=== PATIENT | female | born 1990 | race Caucasian/White ===

== ENCOUNTER 2017-09-22 22:13 | Emergency (ER) | payer MEDICAID ==
[~2017-09-22 22:13] MED LIST: ACE3 PO; ALBU8.5H12 IH; AZIT-1 PO; CEFU500T50 PO; CELEXA; CEPH-13 PO; CEPH250C37 PO; CEPH500C24 PO; DIA5 PO; DIPH-618 PO; DIPH-740 PO; DOCU-416 PO; EPIN0.3P15 IM; HYDR-4309 PO; HYDR1CAP15 PO; IBU600 PO; LEVO1TAB31 PO; LOR5/325 PO; LORA-1455 PO; METH-543 PO; METH4TAB57 PO; METR-1 PO; MULT-1097 PO; NITR-105 PO; NO RTN MEDS; ONDA4TAB PO; ONDA4TAB97 PO; OXYC-865 PO; PRED20TA6 PO; PROM-110 PO; SERT-181 PO; SERT20OR6 PO; TRAZ-163 PO; TRAZ150T8 PO
--- NOTE | 2017-09-22 22:22 | ER Report ---
History and Physical Time Seen By MD: 22:21 HPI/ROS CHIEF COMPLAINT: Left wrist and thumb injury HISTORY OF PRESENT ILLNESS: 27-year-old female tripped over her cat and fell landing on her outstretched left wrist. She notes 6/10 throbbing pain aggravated by movement and palpation. She notes some bruising at the base of her thumb adjacent to the wrist. Patient denies any other injuries. Allergies: Coded Allergies: latex (Verified Allergy, Intermediate, ITCHY, 08/03/17) Sulfa (Sulfonamide Antibiotics) (Verified Allergy, Mild, NAUSEA, AND TIGHT CHEST, 08/03/17) banana (Verified Allergy, Unknown, 08/03/17) chocolate flavor (Verified Allergy, Unknown, 08/03/17) coffee (Coffea arabica) (Verified Allergy, Unknown, 08/03/17) morphine (Verified Allergy, Unknown, 08/03/17) oxycodone (Verified Adverse Reaction, Mild, Vomiting , 08/03/17) Uncoded Allergies: spiders (Allergy, Severe, tachycardia/chest tightness/low blood pressure, ) Home Meds Active Scripts Epinephrine (EPIPEN 2-JES) 0.3 Mg/0.3 Ml Pen.injctr, 0.3 MG IM ONCE for allergic reaction, #1 PACK 0 Refills Prov:PAGE RIBEIRO MD 08/10/16 Reported Medications Trazodone Hcl (TRAZODONE HCL) 100 Mg Tablet, 100 MG PO QHS, TAB 08/03/17 Sertraline Hcl (SERTRALINE HCL) 100 Mg Tablet, 1 TAB PO QDAY, TAB 08/03/17 Multivitamin (ONE DAILY) 1 Each Tablet, 1 EACH PO DAILY 06/26/15 Discontinued Reported Medications Diphenhydramine Hcl (DIPHENHYDRAMINE HCL) 25 Mg Tablet, 25 MG PO Q6-8H Y for ALLERGY SYMPTOMS, TAB 01/30/17 Reviewed Nurses Notes: Yes Old Medical Records Reviewed: Yes Hx Smoking: Yes (09/14PPD ) Smoking Status: Current: Some Days Smoker Exposure to Second Hand Smoke?: Yes (1/2 pack a day) Hx Substance Use Disorder: No Hx Alcohol Use: No Constitutional Vital Sign - Last 24 Hours 09/22/17 09/22/17 22:24 22:51 Temp 98.4 Pulse 91 81 Resp 18 18 B/P (MAP) 140/86 123/82 (96) Pulse Ox 96 96 O2 Delivery Room Air Room Air Physical Exam General appearance: Alert no distress. Respiratory: Chest is non tender, lungs are clear to auscultation. Cardiac: Regular rate and rhythm Extremities: Examination of the left upper extremity reveals a neurovascularly intact hand. There is bruising and soft tissue swelling along the wrist below the thenar eminence. The wrist has decreased range of motion secondary to pain. DIFFERENTIAL DIAGNOSIS: After history and physical exam differential diagnosis was considered for sprain, strain, fracture, dislocation, contusion Medical Decision Making EKG/Imaging Imaging X-ray: Left wrist, 3 views was obtained. I viewed the images myself on the PACS system. My interpretation of the images is: No fracture no dislocation or malalignment. The radiologist interpretation had no clinically significant variation from this interpretation. ED Course/Re-evaluation ED Course Patient was admitted to an examination room. H&P was done. The differential diagnosis was considered. On clinical examination. Patient has some ecchymosis over her hyperthenar eminence adjacent to the wrist. There is decreased range of motion consistent with wrist sprain. There is no obvious deformity. Diagnostic x-rays are negative for obvious fracture or malalignment. Conservative treatment plan is formulated for the patient. She is advised ibuprofen for pain. I do not think a splint will be of much utility. Patient advised to follow-up with primary care if unimproved in 3-5 days. Decision to Disposition Date: Sep 22, 2017 Decision to Disposition Time: 22:45 Depart Departure Latest Vital Signs Vital Signs Date Time Temp Pulse Resp B/P (MAP) Pulse Ox O2 Delivery O2 Flow Rate FiO2 09/22/17 22:51 81 18 123/82 (96) 96 Room Air 09/22/17 22:24 98.4 Impression: Primary Impression: Left wrist sprain Condition: Improved Disposition: HOME OR SELF-CARE Patient Instructions: Wrist Sprain (ED) Additional Instructions: Take ibuprofen 200 mg 3 tablets 3 times a day with food for 3-5 days Apply ice packs to the affected area 3 times a day for 2 days Follow-up with your primary care if unimproved in 3-5 days Problem Qualifiers Primary Impression: Left wrist sprain Encounter type: initial encounter Qualified Codes: S63.502A - Unspecified sprain of left wrist, initial encounter CHLOE COREAS DO Sep 22, 2017 22:22
[2017-09-22 22:51] VITALS: BP 123/82
--- NOTE | 2017-09-22 22:51 | RADIOLOGY IMAGING REPORT ---
FACILITY: [facility] PATIENT NAME: Sharri Lema : 1990 MR: [id number] V: [id number] EXAM DATE: ORDERING PHYSICIAN: CHLOE COREAS TECHNOLOGIST: Location: [facility] Patient: Sharri Lema : 1990 Visit/Account:[id number] Date of Sevice: 09/22/2017 EXAMINATION: Left wrist series, 3 views 09/22/2017 10:25 PM HISTORY: Fall. Lateral pain in left wrist. COMPARISON: None FINDINGS: Visualized bony structures are intact and anatomically aligned without fracture or other a cute osseous abnormality evident. Small chronic ossification center or sesamoid dorsally over the car pometacarpal articulation on the lateral. IMPRESSION: No acute bony injury. Report Dictated By: Ed Arboleda MD at 09/22/2017 10:46 PM Report E-Signed By: Ed Arboleda MD at 09/22/2017 10:48 PM WSN:[id number]
== END 2017-09-22 22:49 | disposition home or self-care (01) ==
LOC: ER 22:26
DX: S63.502A Unspecified sprain of left wrist, initial encounter (principal)
CPT/HCPCS: 99283

== ENCOUNTER 2018-02-11 19:22 | Emergency (ER) | payer MEDICAID ==
[~2018-02-11 19:22] MED LIST changes: +SERT-173 PO; -SERT20OR6 PO
--- NOTE | 2018-02-11 19:27 | ER Report ---
History and Physical Time Seen By MD: 19:27 Allergies: Coded Allergies: latex (Verified Allergy, Intermediate, ITCHY, 02/11/18) Sulfa (Sulfonamide Antibiotics) (Verified Allergy, Mild, NAUSEA, AND TIGHT CHEST, 02/11/18) banana (Verified Allergy, Unknown, 02/11/18) chocolate flavor (Verified Allergy, Unknown, 02/11/18) coffee (Coffea arabica) (Verified Allergy, Unknown, 02/11/18) morphine (Verified Allergy, Unknown, 02/11/18) oxycodone (Verified Adverse Reaction, Mild, Vomiting , 02/11/18) Uncoded Allergies: spiders (Allergy, Severe, tachycardia/chest tightness/low blood pressure, ) Home Meds Reported Medications Trazodone Hcl (TRAZODONE HCL) 100 Mg Tablet, 100 MG PO QHS, TAB 08/03/17 Sertraline Hcl (SERTRALINE HCL) 100 Mg Tablet, 1 TAB PO QDAY, TAB 08/03/17 Discontinued Reported Medications Multivitamin (ONE DAILY) 1 Each Tablet, 1 EACH PO DAILY 06/26/15 Discontinued Scripts Epinephrine (EPIPEN 2-JES) 0.3 Mg/0.3 Ml Pen.injctr, 0.3 MG IM ONCE for allergic reaction, #1 PACK 0 Refills Prov:PAGE RIBEIRO MD 08/10/16 Reviewed Nurses Notes: Yes Old Medical Records Reviewed: Yes Hx Smoking: Yes (4PPD ) Smoking Status: Current: Some Days Smoker Exposure to Second Hand Smoke?: Yes (1/2 pack a day) Hx Substance Use Disorder: No Hx Alcohol Use: No Constitutional Vital Sign - Last 24 Hours 02/11/18 19:27 Temp 98.7 Pulse 91 Resp 18 B/P (MAP) 120/82 Pulse Ox 95 O2 Delivery Room Air Depart Departure Latest Vital Signs Vital Signs Date Time Temp Pulse Resp B/P (MAP) Pulse Ox O2 Delivery O2 Flow Rate FiO2 02/11/18 19:27 98.7 91 18 120/82 95 Room Air CHLOE COREAS DO Feb 11, 2018 19:27
--- NOTE | 2018-02-11 20:06 | ER Report ---
History and Physical Time Seen By MD: 19:36 Hx. of Stated Complaint: WATER TROUGH DROPPED ON LEFT FOOT APPROX 150# HPI/ROS CHIEF COMPLAINT: Dropped trough on foot HISTORY OF PRESENT ILLNESS: 27-year-old female patient presents to emergency room with complaint of left foot pain. Patient states that she was cleaning out the water trough for horse and while she was doing that she did not notice that it was caught on the fence. As she is putting water into it a became disconnected from the fence and fell onto her foot. Patient since then has been having significant amounts of pain to the top side of her foot. She states she does have some numbness and tingling to her toes. Patient denies any difficulty moving her toes. She states she has been able to walk on it although she does have discomfort with that. Patient has not taken any medication for this. Allergies: Coded Allergies: latex (Verified Allergy, Intermediate, ITCHY, 02/11/18) Sulfa (Sulfonamide Antibiotics) (Verified Allergy, Mild, NAUSEA, AND TIGHT CHEST, 02/11/18) banana (Verified Allergy, Unknown, 02/11/18) chocolate flavor (Verified Allergy, Unknown, 02/11/18) coffee (Coffea arabica) (Verified Allergy, Unknown, 02/11/18) morphine (Verified Allergy, Unknown, 02/11/18) oxycodone (Verified Adverse Reaction, Mild, Vomiting , 02/11/18) Uncoded Allergies: spiders (Allergy, Severe, tachycardia/chest tightness/low blood pressure, ) Home Meds Reported Medications Trazodone Hcl (TRAZODONE HCL) 100 Mg Tablet, 100 MG PO QHS, TAB 08/03/17 Sertraline Hcl (SERTRALINE HCL) 100 Mg Tablet, 1 TAB PO QDAY, TAB 08/03/17 Discontinued Reported Medications Multivitamin (ONE DAILY) 1 Each Tablet, 1 EACH PO DAILY 06/26/15 Discontinued Scripts Epinephrine (EPIPEN 2-JES) 0.3 Mg/0.3 Ml Pen.injctr, 0.3 MG IM ONCE for allergic reaction, #1 PACK 0 Refills Prov:PAGE RIBEIRO MD 08/10/16 Past Medical/Surgical History Patient has a past medical history of tachycardia, panic attacks, hernia, kidney stones, frequent UTIs, ovarian cyst, polycystic ovarian syndrome, back pain, PTSD, depression. Patient has a surgical history of neck surgery. Patient has a family medical history of stroke, diabetes, mental disability. Reviewed Nurses Notes: Yes Hx Smoking: Yes (1/4PPD ) Smoking Status: Current: Some Days Smoker Exposure to Second Hand Smoke?: Yes (1/2 pack a day) Hx Substance Use Disorder: No Hx Alcohol Use: No Constitutional Vital Sign - Last 24 Hours 02/11/18 02/11/18 19:27 20:58 Temp 98.7 Pulse 91 80 Resp 18 16 B/P (MAP) 120/82 114/92 (99) Pulse Ox 95 90 O2 Delivery Room Air Physical Exam General appearance: Alert no distress. Respiratory: Chest is non tender, lungs are clear to auscultation. Cardiac: Regular rate and rhythm. Musculoskeletal: Patient has tenderness to the top of the left foot, there is no bruising noted, patient is able wiggle her toes without any difficulties. DIFFERENTIAL DIAGNOSIS: After history and physical exam differential diagnosis was considered for contusion, fracture, crush injury. Medical Decision Making EKG/Imaging Imaging INDICATION: Left foot injury. EXAM DATE: 02/11/2018 8:04 PM COMPARISON: None. FINDINGS: 3 views left foot. Mineralization is normal. No acute alignment abnormality or fracture. Soft tissues are unremarkable. IMPRESSION: Normal left foot. Report Dictated By: Gino Salmon MD at 02/11/2018 8:16 PM Report E-Signed By: Gino Salmon MD at 02/11/2018 8:18 PM ED Course/Re-evaluation ED Course Patient was admitted to exam room, history and physical were obtained. Differential diagnoses were considered. On examination patient has some tenderness to the top of the left foot, there is some swelling but no bruising. X-rays done of the left foot which was negative for fracture. I discussed findings with the patient. We will go ahead and discharge patient this time. She is to limit her activity by pain, she is to ice her foot to 3 times a day. She is return to emergency room if condition worsens. Patient verbalized understanding and agreement with plan. Decision to Disposition Date: Feb 11, 2018 Decision to Disposition Time: 20:39 Depart Departure Latest Vital Signs Vital Signs Date Time Temp Pulse Resp B/P (MAP) Pulse Ox O2 Delivery O2 Flow Rate FiO2 02/11/18 20:58 80 16 114/92 (99) 90 02/11/18 19:27 98.7 Room Air Impression: Primary Impression: Foot contusion Condition: Improved Disposition: HOME OR SELF-CARE Patient Instructions: Contusion in Adults (ED) Additional Instructions: Limit activity by pain. Ice the foot 2-3 times a day for 10-15 minutes. Get plenty of rest. Take Tylenol or Ibuprofen as needed for pain. Follow up with your primary care primary care provider in the next week. Return to the ER if condition worsens. Problem Qualifiers Primary Impression: Foot contusion Encounter type: initial encounter Laterality: left Qualified Codes: S90.32XA - Contusion of left foot, initial encounter LUCIE KIM Feb 11, 2018 20:06
--- NOTE | 2018-02-11 20:21 | RADIOLOGY IMAGING REPORT ---
FACILITY: [facility] [place] PATIENT NAME: Sharri Lema : 1990 MR: [id number] V: [id number] EXAM DATE: ORDERING PHYSICIAN: LUCIE KIM TECHNOLOGIST: Location: [facility] Patient: Sharri Lema : 1990 Visit/Account:[id number] Date of Sevice: 02/11/2018 INDICATION: Left foot injury. EXAM DATE: 02/11/2018 8:04 PM COMPARISON: None. FINDINGS: 3 views left foot. Mineralization is normal. No acute alignment abnormality or fracture. Soft tissues are unremarkable. IMPRESSION: Normal left foot. Report Dictated By: Gino Salmon MD at 02/11/2018 8:16 PM Report E-Signed By: Gino Salmon MD at 02/11/2018 8:18 PM WSN:[id number]
[2018-02-11 20:58] VITALS: BP 114/92
== END 2018-02-11 21:03 | disposition home or self-care (01) ==
LOC: ER 19:30
DX: S90.32XA Contusion of left foot, initial encounter (principal)
CPT/HCPCS: 99282; 99283

== ENCOUNTER 2018-03-29 07:57 | Emergency (ER) | payer MEDICAID ==
[~2018-03-29 07:57] MED LIST changes: -TRAZ-163 PO; +TRAZ100T31 PO
--- NOTE | 2018-03-29 08:00 | ER Report ---
History and Physical Time Seen By MD: 08:00 HPI/ROS CHIEF COMPLAINT: Right lower quadrant abdominal pain HISTORY OF PRESENT ILLNESS: Patient is a 27-year-old female who presents to the emergency department with complaint of right lower quadrant abdominal pain that is severe in nature. Movement seems to make the pain worse. She states that the symptoms began 3 AM yesterday. She apparently was seen by her primary care provider yesterday. She states that the provider was not concerned somewhat about abdominal pain however stated that her lungs sounded "bad". She reports that the chest x-ray was done at that time but sates that it was "negative". She was started on a course of dicloxacillin for presumed pneumonia. Patient states she's been having fevers and chills. She states that the pain has persisted which is why she presents to the emergency department at this time. She denies any dysuria. She denies any vaginal discharge. She does state that she's had a history of ovarian cysts in the past. REVIEW OF SYSTEMS: Constitutional: Fevers with chills Eyes: No discharge. ENT: No sore throat. Cardiovascular: No chest pain, no palpitations. Respiratory: No cough, no shortness of breath. Gastrointestinal: Right lower quadrant abdominal pain, nausea Genitourinary: No hematuria. Musculoskeletal: No back pain. Skin: No rashes. Neurological: No headache. Allergies: Coded Allergies: latex (Verified Allergy, Intermediate, ITCHY, 03/29/18) Sulfa (Sulfonamide Antibiotics) (Verified Allergy, Mild, NAUSEA, AND TIGHT CHEST, 03/29/18) banana (Verified Allergy, Unknown, 03/29/18) chocolate flavor (Verified Allergy, Unknown, 03/29/18) coffee (Coffea arabica) (Verified Allergy, Unknown, 03/29/18) morphine (Verified Allergy, Unknown, 03/29/18) oxycodone (Verified Adverse Reaction, Mild, Vomiting , 03/29/18) Uncoded Allergies: spiders (Allergy, Severe, tachycardia/chest tightness/low blood pressure, ) Home Meds Active Scripts Hydrocodone Bit/Acetaminophen (HYDROCODON-ACETAMINOPHEN 5-325) 1 Each Tablet, 1 EACH PO Q6H for PAIN, #15 TAB 0 Refills Prov:PAGE RIBEIRO MD 03/29/18 Cephalexin 500 Mg Tab (KEFLEX 500 MG TAB) 500 Mg Tablet, 500 MG PO Q6H, #28 TAB 0 Refills TAKE ONE TABLET BY MOUTH EVERY SIX HOURS Prov:PAGE RIBEIRO MD 03/29/18 Ondansetron Hcl (ZOFRAN) 4 Mg Tablet, 4 MG PO Q8H for Nausea, #15 TAB 0 Refills Prov:PAGE RIBEIRO MD 03/29/18 Reported Medications [implanon] No Conflict Check 03/29/18 Dicloxacillin Sodium (DICLOXACILLIN SODIUM) 250 Mg Capsule, 250 MG PO, CAPSULE 03/29/18 Trazodone Hcl (TRAZODONE HCL) 100 Mg Tablet, 100 MG PO QHS, TAB 08/03/17 Sertraline Hcl (SERTRALINE HCL) 100 Mg Tablet, 1 TAB PO QDAY, TAB 08/03/17 Discontinued Scripts Oxycodone Hcl/Acetaminophen (PERCOCET 5-325 MG TABLET) 1 Each Tablet, 1 EACH PO Q4-6H for PAIN, #15 TAB 0 Refills Prov:PAGE RIBEIRO MD 03/29/18 Past Medical/Surgical History Patient has a past medical history of tachycardia, panic attacks, hernia, kidney stones, frequent UTIs, ovarian cyst, polycystic ovarian syndrome, back pain, PTSD, depression. Patient has a surgical history of neck surgery. Hx Smoking: Yes (1/4PPD ) Smoking Status: Current: Some Days Smoker Exposure to Second Hand Smoke?: Yes (1/2 pack a day) Hx Substance Use Disorder: No Hx Alcohol Use: No Constitutional Vital Sign - Last 24 Hours 03/29/18 03/29/18 03/29/18 03/29/18 07:57 08:00 08:01 08:15 Temp 98.3 Pulse ??? 112 Resp 22 B/P (MAP) 128/76 128/76 (93) 130/86 (101) Pulse Ox 92 O2 Delivery Room Air 03/29/18 03/29/18 03/29/18 03/29/18 08:27 08:30 08:45 09:15 Pulse 110 B/P (MAP) 132/81 (98) 120/85 (97) 128/74 (92) Pulse Ox 94 03/29/18 03/29/18 09:30 09:45 B/P (MAP) 128/74 (92) 101/58 (72) Intake and Output 03/29/18 03/29/18 03/30/18 14:59 22:59 06:59 Intake Total 1000 ml Balance 1000 ml Physical Exam General/Constitutional: Patient is awake, alert, nontoxic and in no acute respiratory distress. Head: Normocephalic and atraumatic. Eyes: Conjunctival clear, Pupils are equal and reactive to light. Extraocular muscles are intact and symmetrical. Sclera are clear and anicteric. Ears:External canals are clear. Tympanic membranes are clear with normal landmarks and light reflex. Nares: No rhinorrhea or bleeding. Turbinates are pink and moist. Oropharyngeal: Mucous membranes are moist. There is no pharyngeal erythema or exudate. There are no palatal petechiae. Uvula is midline and symmetrical. Neck: Supple, no adenopathy. Cardiovascular: Heart is regular and slightly tachycardic without murmurs Pulmonary: Lungs are clear to auscultation bilaterally. There are no wheezes, rales, or rhonchi. Chest rise is symmetrical Abdomen: Right lower quadrant abdominal pain with voluntary guarding equivocal rebound tenderness. Extremities: No gross deformities, No peripheral cyanosis. Able to move all 4 extremities. Neuro: Alert and oriented X3, Skin: No rashes, skin is warm dry and well perfused. Medical Decision Making Data Points Result Diagram: 03/29/18 0806 03/29/18 0806 Laboratory Hematology Test 03/29/18 08:00 03/29/18 08:06 Urine Color Yellow Urine Clarity Slightly-cloudy Urine pH 5.0 pH (4.8-9.5) Urine Specific [place] 1.016 Urine Protein 30 mg/dL (NEGATIVE) Urine Glucose (UA) Negative mg/dL (NEGATIVE) Urine Ketones Negative mg/dL (NEGATIVE) Urine Blood Moderate (NEGATIVE) Urine Nitrite Negative (NEGATIVE) Urine Bilirubin Negative (NEGATIVE) Urine Urobilinogen Negative mg/dL (0.2-1.9) Urine Leukocyte Esterase Small (NEGATIVE) Urine RBC 63 /HPF (0-2/HPF) Urine WBC 71 /HPF (0-5/HPF) Urine Squamous Epithelial Cells Many /LPF (</=FEW) Urine Bacteria Few /HPF (NONE-FEW) Urine Mucus Few /HPF (NONE-FEW) Red Blood Count 4.79 M/uL (4.17-5.56) Mean Corpuscular Volume 87.3 fL (80.0-96.0) Mean Corpuscular Hemoglobin 30.8 pg (26.0-33.0) Mean Corpuscular Hemoglobin Concent 35.2 g/dL (32.0-36.0) Red Cell Distribution Width 13.5 % (11.5-14.5) Mean Platelet Volume 8.1 fL (7.2-11.1) Neutrophils (%) (Auto) 79.1 % (39.4-72.5) Lymphocytes (%) (Auto) 11.5 % (17.6-49.6) Monocytes (%) (Auto) 8.6 % (4.1-12.4) Eosinophils (%) (Auto) 0.3 % (0.4-6.7) Basophils (%) (Auto) 0.5 % (0.3-1.4) Nucleated RBC Relative Count (auto) 0.0 /100WBC Neutrophils # (Auto) 9.6 K/uL (2.0-7.4) Lymphocytes # (Auto) 1.4 K/uL (1.3-3.6) Monocytes # (Auto) 1.0 K/uL (0.3-1.0) Eosinophils # (Auto) 0.0 K/uL (0.0-0.5) Basophils # (Auto) 0.1 K/uL (0.0-0.1) Nucleated RBC Absolute Count (auto) 0.00 K/uL Sodium Level 138 mmol/L (137-145) Potassium Level 3.5 mmol/L (3.5-5.0) Chloride Level 105 mmol/L (98-107) Carbon Dioxide Level 22 mmol/L (22-31) Blood Urea Nitrogen 7 mg/dl (7-18) Creatinine 0.70 mg/dl (0.52-1.04) Glomerular Filtration Rate Calc > 60.0 Random Glucose 130 mg/dl (75-110) Calcium Level 8.8 mg/dl (8.4-10.2) Total Bilirubin 0.6 mg/dl (0.2-1.3) Aspartate Amino Transf (AST/SGOT) 17 U/L (0-35) Alanine Aminotransferase (ALT/SGPT) 19 U/L (0-56) Alkaline Phosphatase 61 U/L (0-126) Total Protein 6.6 g/dl (6.3-8.2) Albumin 3.9 g/dl (3.5-5.0) Lipase 43 U/L (23-300) Human Chorionic Gonadotropin, Qual Negative (NEGATIVE) Chemistry Test 03/29/18 08:00 03/29/18 08:06 Urine Color Yellow Urine Clarity Slightly-cloudy Urine pH 5.0 pH (4.8-9.5) Urine Specific [place] 1.016 Urine Protein 30 mg/dL (NEGATIVE) Urine Glucose (UA) Negative mg/dL (NEGATIVE) Urine Ketones Negative mg/dL (NEGATIVE) Urine Blood Moderate (NEGATIVE) Urine Nitrite Negative (NEGATIVE) Urine Bilirubin Negative (NEGATIVE) Urine Urobilinogen Negative mg/dL (0.2-1.9) Urine Leukocyte Esterase Small (NEGATIVE) Urine RBC 63 /HPF (0-2/HPF) Urine WBC 71 /HPF (0-5/HPF) Urine Squamous Epithelial Cells Many /LPF (</=FEW) Urine Bacteria Few /HPF (NONE-FEW) Urine Mucus Few /HPF (NONE-FEW) White Blood Count 12.1 k/uL (4.5-11.0) Red Blood Count 4.79 M/uL (4.17-5.56) Hemoglobin 14.8 g/dL (12.0-16.0) Hematocrit 41.9 % (34.0-47.0) Mean Corpuscular Volume 87.3 fL (80.0-96.0) Mean Corpuscular Hemoglobin 30.8 pg (26.0-33.0) Mean Corpuscular Hemoglobin Concent 35.2 g/dL (32.0-36.0) Red Cell Distribution Width 13.5 % (11.5-14.5) Platelet Count 195 K/uL (150-450) Mean Platelet Volume 8.1 fL (7.2-11.1) Neutrophils (%) (Auto) 79.1 % (39.4-72.5) Lymphocytes (%) (Auto) 11.5 % (17.6-49.6) Monocytes (%) (Auto) 8.6 % (4.1-12.4) Eosinophils (%) (Auto) 0.3 % (0.4-6.7) Basophils (%) (Auto) 0.5 % (0.3-1.4) Nucleated RBC Relative Count (auto) 0.0 /100WBC Neutrophils # (Auto) 9.6 K/uL (2.0-7.4) Lymphocytes # (Auto) 1.4 K/uL (1.3-3.6) Monocytes # (Auto) 1.0 K/uL (0.3-1.0) Eosinophils # (Auto) 0.0 K/uL (0.0-0.5) Basophils # (Auto) 0.1 K/uL (0.0-0.1) Nucleated RBC Absolute Count (auto) 0.00 K/uL Glomerular Filtration Rate Calc > 60.0 Calcium Level 8.8 mg/dl (8.4-10.2) Total Bilirubin 0.6 mg/dl (0.2-1.3) Aspartate Amino Transf (AST/SGOT) 17 U/L (0-35) Alanine Aminotransferase (ALT/SGPT) 19 U/L (0-56) Alkaline Phosphatase 61 U/L (0-126) Total Protein 6.6 g/dl (6.3-8.2) Albumin 3.9 g/dl (3.5-5.0) Lipase 43 U/L (23-300) Human Chorionic Gonadotropin, Qual Negative (NEGATIVE) Urinalysis Test 03/29/18 08:00 Urine Color Yellow Urine Clarity Slightly-cloudy Urine pH 5.0 pH (4.8-9.5) Urine Specific [place] 1.016 Urine Protein 30 mg/dL (NEGATIVE) Urine Glucose (UA) Negative mg/dL (NEGATIVE) Urine Ketones Negative mg/dL (NEGATIVE) Urine Blood Moderate (NEGATIVE) Urine Nitrite Negative (NEGATIVE) Urine Bilirubin Negative (NEGATIVE) Urine Urobilinogen Negative mg/dL (0.2-1.9) Urine Leukocyte Esterase Small (NEGATIVE) Urine RBC 63 /HPF (0-2/HPF) Urine WBC 71 /HPF (0-5/HPF) Urine Squamous Epithelial Cells Many /LPF (</=FEW) Urine Bacteria Few /HPF (NONE-FEW) Urine Mucus Few /HPF (NONE-FEW) EKG/Imaging Imaging FACILITY: [facility] PATIENT NAME: Sharri Lema : 1990 MR: [id number] V: [id number] EXAM DATE: ORDERING PHYSICIAN: PAGE RIBEIRO TECHNOLOGIST: Location: [facility] [place] Patient: Sharri Lema : 1990 Visit/Account:[id number] Date of Sevice: 03/29/2018 ABDOMEN/PELVIS WITH CONTRAST HISTORY: Right lower quadrant pain. TECHNIQUE: CT abdomen and pelvis with intravenous contrast. One of the following dose optimization techniques was utilized in the performance of this exam: Automated exposure control; adjustment of the mA and/ or kV according to the patient's size; or use of an iterative reconstruction technique. Specific details can be referenced in the facility's radiology CT exam operational policy. CONTRAST: 75 mL Isovue-370 IV COMPARISON: None. FINDINGS: Visualized lung bases: Negative. Hepatobiliary: Punctate calcification left hepatic lobe consistent with benign granuloma. Spleen: Negative. Adrenals: Negative. Pancreas: Negative. Kidneys/: Left kidney unremarkable. Patchy ill-defined areas of cortical hypoenhancement throughout the right kidney with mild perinephric fat stranding. No gross organized cortical fluid collection to suggest abscess at this time. Mild asymmetric urothelial thickening on the right without hydronephrosis. No urinary collecting system stone. 3.5 cm simple fluid attenuating right ovarian cyst. GI: No obstruction, wall thickening or surrounding inflammation. Appendix well- visualized and appears normal. Mild distal colonic constipation. Vessels/spaces/nodes: Trace free pelvic fluid. Bones/soft tissues: Unremarkable. IMPRESSION: 1. Asymmetric right perinephric fat stranding, patchy ill-defined foci of renal cortical hypoenhancement and urothelial thickening most consistent with urinary tract infection/pyelonephritis. 2. 3.5 cm simple fluid attenuating right ovarian cyst. Report Dictated By: Clark Henderson MD at 03/29/2018 9:17 AM Report E-Signed By: Clark Henderson MD at 03/29/2018 9:23 AM WSN:[id number] ED Course/Re-evaluation Clinical Indication for ER IV: Hydration, IV Access ED Course 03/29/2018 8:17:47 am patient with right lower quadrant abdominal pain. After history and physical exam was performed differential diagnosis was formulated which includes but is not limited to: Appendicitis, gastroenteritis, ovarian cysts, ovarian torsion, mesenteric adenitis. Plan at this time will be IV hydration along with pain relief with IV Toradol, nausea relief with IV Reglan and Benadryl. I will check CBC CMP and CT scan of the abdomen and pelvis. We'll also perform a urinalysis. We'll check test. Re-evaluation 03/29/2018 9:23:38 am pain is significantly improved with Toradol, Reglan and Benadryl. Awaiting results of CT scan. 03/29/2018 10:16:[address] consistent with acute pyelonephritis. Plan will be IV Rocephin we'll then send the patient home on oral Keflex and have her discontinue the dicloxacillin. I initially called and oxycodone however patient has an allergy for that medication we will switch prescription for hydrocodone Decision to Disposition Date: Mar 29, 2018 Decision to Disposition Time: 10:17 Depart Departure Latest Vital Signs Vital Signs Date Time Temp Pulse Resp B/P (MAP) Pulse Ox O2 Delivery O2 Flow Rate FiO2 03/29/18 09:45 101/58 (72) 03/29/18 08:27 110 94 03/29/18 08:00 98.3 22 Room Air Impression: Primary Impression: Pyelonephritis Condition: Improved New Scripts Hydrocodone Bit/Acetaminophen (HYDROCODON-ACETAMINOPHEN 5-325) 1 Each Tablet 1 EACH PO Q6H for PAIN, #15 TAB 0 Refills Prov: PAGE RIBEIRO MD 03/29/18 Cephalexin 500 Mg Tab (KEFLEX 500 MG TAB) 500 Mg Tablet 500 MG PO Q6H, #28 TAB 0 Refills TAKE ONE TABLET BY MOUTH EVERY SIX HOURS Prov: PAGE RIBEIRO MD 03/29/18 Ondansetron Hcl (ZOFRAN) 4 Mg Tablet 4 MG PO Q8H for Nausea, #15 TAB 0 Refills Prov: PAGE RIBEIRO MD 03/29/18 Patient Instructions: Urinary Tract Infection in Women (ED) Additional Instructions: Discontinue dicloxacillin, begin new course of antibiotic today and take as directed until complete. If your symptoms worsen at any time he should return to the emergency department for reevaluation. If your symptoms persist greater than [id number] hours he should be reevaluated. PAGE RIBEIRO MD Mar 29, 2018 08:00
[2018-03-29] MEDS ORDERED: [UNRECOGNIZED DRUG - CODE] PO (08:05)
[2018-03-29] MEDS ORDERED: implanon (08:10)
[2018-03-29] MEDS ORDERED: KETOROLAC 30 MG/ML VIAL IVP ONE (08:15)
[2018-03-29] MEDS ORDERED: METOCLOPRAMIDE 10 MG/2 ML SDV IVP ONE (08:15)
[2018-03-29] MEDS ORDERED: NS(*) 0.9% 1000 ML BAG 1,000 ML IV ONE (08:15)
[2018-03-29] MEDS ORDERED: diphenhydrAMINE 50 MG/ML VIAL IVP ONE (08:15)
[2018-03-29 08:23] LABS: PLATELET COUNT, AUTOMATED 195 K/uL (150-450)
[2018-03-29] MEDS ORDERED: IOPAMIDOL 76% 75 ML INFUS BTL 75 ML ONE (08:28)
--- NOTE | 2018-03-29 09:27 | RADIOLOGY IMAGING REPORT ---
[place] [facility] [place] Sharri Lema : 1990 MR: [id number] V: [id number] EXAM DATE: ORDERING PHYSICIAN: PAGE RIBEIRO TECHNOLOGIST: Location: [facility] - [place] Patient: Sharri Lema : 1990 Visit/Account:[id number] Date of Sevice: 03/29/2018 ABDOMEN/PELVIS WITH CONTRAST HISTORY: Right lower quadrant pain. TECHNIQUE: CT abdomen and pelvis with intravenous contrast. One of the following dose optimization techniques was utilized in the performance of this exam: Autom ated exposure control; adjustment of the mA and/or kV according to the patient's size; or use of an i terative reconstruction technique. Specific details can be referenced in the facility's radiology C T exam operational policy. CONTRAST: 75 mL Isovue-370 IV COMPARISON: None. FINDINGS: Visualized lung bases: Negative. Hepatobiliary: Punctate calcification left hepatic lobe consistent with benign granuloma. Spleen: Negative. Adrenals: Negative. Pancreas: Negative. Kidneys/: Left kidney unremarkable. Patchy ill-defined areas of cortical hypoenhancement throughou t the right kidney with mild perinephric fat stranding. No gross organized cortical fluid collection to suggest abscess at this time. Mild asymmetric urothelial thickening on the right without hydroneph rosis. No urinary collecting system stone. 3.5 cm simple fluid attenuating right ovarian cyst. GI: No obstruction, wall thickening or surrounding inflammation. Appendix well-visualized and appear s normal. Mild distal colonic constipation. Vessels/spaces/nodes: Trace free pelvic fluid. Bones/soft tissues: Unremarkable. IMPRESSION: 1. Asymmetric right perinephric fat stranding, patchy ill-defined foci of renal cortical hypoenhancem ent and urothelial thickening most consistent with urinary tract infection/pyelonephritis. 2. 3.5 cm simple fluid attenuating right ovarian cyst. Report Dictated By: Clark Henderson MD at 03/29/2018 9:17 AM Report E-Signed By: Clark Henderson MD at 03/29/2018 9:23 AM WSN:[id number]
[2018-03-29] MEDS ORDERED: cefTRIAXone 1 GM VIAL IVP ONE (09:35)
[2018-03-29] MEDS ORDERED: ONDA4TAB97 PO (09:38)
[2018-03-29] MEDS ORDERED: OXYC-865 PO (09:38)
[2018-03-29] MEDS ORDERED: CEPH500T7 PO (09:38)
[2018-03-29 09:45] VITALS: BP 101/58
[2018-03-29] MEDS ORDERED: HYDR-385 PO (10:15)
== END 2018-03-29 09:59 | disposition home or self-care (01) ==
LOC: ER 08:00
DX: N10 Acute pyelonephritis (principal)
CPT/HCPCS: 74177; 81001; 83690; 84703; 85025; 96361; 96374; 96375; 99284; J0696; J1200; J1885; J2765; J7030; Q9967; 82040; 82247; 82310; 82374; 82435; 82565; 82947; 84075; 84132; 84155; 84295; 84450; 84460; 84520

== ENCOUNTER 2018-05-02 19:48 | Emergency (ER) | payer MEDICAID ==
[~2018-05-02 19:48] MED LIST changes: +CEPH500T7 PO; +HYDR-385 PO; +[UNRECOGNIZED DRUG - CODE] PO; +implanon
--- NOTE | 2018-05-02 19:50 | ER Report ---
History and Physical Time Seen By MD: 19:50 HPI/ROS CHIEF COMPLAINT: Right index finger laceration HISTORY OF PRESENT ILLNESS: 27-year-old female presents ambulatory the ER with a laceration to her right index finger. She was cutting lilian stems off to place them in water. She accidentally cut her right index finger adjacent to the nail on the radial side. There is approximately 5 mm laceration starting at the margin of the nail extending around to the pad of the finger. There is a small anni in the nail. Patient states her tetanus shots up-to-date. Patient notes 2/10 dull pain in her fingertip. Bleeding controlled with pressure. Allergies: Coded Allergies: latex (Verified Allergy, Intermediate, ITCHY, 05/02/18) Sulfa (Sulfonamide Antibiotics) (Verified Allergy, Mild, NAUSEA, AND TIGHT CHEST, 05/02/18) banana (Verified Allergy, Unknown, 05/02/18) chocolate flavor (Verified Allergy, Unknown, 05/02/18) coffee (Coffea arabica) (Verified Allergy, Unknown, 05/02/18) morphine (Verified Allergy, Unknown, 05/02/18) oxycodone (Verified Adverse Reaction, Mild, Vomiting , 05/02/18) Uncoded Allergies: spiders (Allergy, Severe, tachycardia/chest tightness/low blood pressure, 10/23/16) Home Meds Reported Medications Fluticasone Prop 44 Mcg (FLOVENT HFA 44 MCG) 44 Mcg Inha, 44 MCG INH, INH 05/02/18 Epinephrine (EPIPEN 2-JES) 0.3 Mg/0.3 Ml Pen.injctr, 0.3 MG IM PRN 05/02/18 [implanon] No Conflict Check 03/29/18 Trazodone Hcl (TRAZODONE HCL) 100 Mg Tablet, 100 MG PO QHS, TAB 08/03/17 Sertraline Hcl (SERTRALINE HCL) 100 Mg Tablet, 1 TAB PO QDAY, TAB 08/03/17 Discontinued Reported Medications Dicloxacillin Sodium (DICLOXACILLIN SODIUM) 250 Mg Capsule, 250 MG PO, CAPSULE 03/29/18 Discontinued Scripts Hydrocodone Bit/Acetaminophen (HYDROCODON-ACETAMINOPHEN 5-325) 1 Each Tablet, 1 EACH PO Q6H for PAIN, #15 TAB 0 Refills Prov:PAGE RIBEIRO MD 03/29/18 Cephalexin 500 Mg Tab (KEFLEX 500 MG TAB) 500 Mg Tablet, 500 MG PO Q6H, #28 TAB 0 Refills TAKE ONE TABLET BY MOUTH EVERY SIX HOURS Prov:PAGE RIBEIRO MD 03/29/18 Ondansetron Hcl (ZOFRAN) 4 Mg Tablet, 4 MG PO Q8H for Nausea, #15 TAB 0 Refills Prov:PAGE RIBEIRO MD 03/29/18 Reviewed Nurses Notes: Yes Old Medical Records Reviewed: Yes Hx Smoking: Yes (14PPD ) Smoking Status: Current: Some Days Smoker Exposure to Second Hand Smoke?: Yes (1/2 pack a day) Hx Substance Use Disorder: No Hx Alcohol Use: No Constitutional Vital Sign - Last 24 Hours 05/02/18 05/02/18 19:51 20:27 Temp 98.2 Pulse 96 64 Resp 16 18 B/P (MAP) 125/84 125/82 (96) Pulse Ox 95 97 O2 Delivery Room Air Room Air Physical Exam General appearance: Alert no distress. Respiratory: Chest is non tender, lungs are clear to auscultation. Cardiac: Regular rate and rhythm Extremity: Examination of the right index finger. There is a 5 mm laceration on the right index finger on the radial aspect just adjacent to the nail. It is a transverse laceration. The joint and all tendons are noted to be intact. DIFFERENTIAL DIAGNOSIS: After history and physical exam differential diagnosis was considered for finger laceration, nail bed laceration, foreign body, joint penetration, tendon injury, digital nerve injury. Medical Decision Making ED Course/Re-evaluation ED Course Patient was admitted to an examination room. H&P was done. The differential diagnoses was considered. The wound was cleansed. Pressure was held to control the bleeding. Dermabond was applied as noted below. The wound care was discussed. Procedure: Laceration repair. Verbal consent was obtained from the patient. The 5 mm laceration on the right index finger was anesthetized in the usual fashion. The wound was scrubbed, draped and explored to its base with a gloved finger. The wound was repaired with Dermabond adhesive. The wound repair was simple. The procedure was performed by myself. Decision to Disposition Date: May 02, 2018 Decision to Disposition Time: 20:16 Depart Departure Latest Vital Signs Vital Signs Date Time Temp Pulse Resp B/P (MAP) Pulse Ox O2 Delivery O2 Flow Rate FiO2 05/02/18 20:27 64 18 125/82 (96) 97 Room Air 05/02/18 19:51 98.2 Impression: Primary Impression: Laceration of right index finger Condition: Improved Disposition: HOME OR SELF-CARE Patient Instructions: Skin Adhesive Care (ED) Problem Qualifiers Primary Impression: Laceration of right index finger Encounter type: initial encounter Damage to nail status: without damage Foreign body presence: without foreign body Qualified Codes: S61.210A - Laceration without foreign body of right index finger without damage to nail, initial encounter CHLOE COREAS DO May 02, 2018 19:50
[2018-05-02] MEDS ORDERED: OCTYL CYANOACRYLATE 1 APP APPL TP ONE (19:55)
[2018-05-02] MEDS ORDERED: FLU44R INH (19:57)
[2018-05-02] MEDS ORDERED: EPIN0.3P15 IM (19:57)
[2018-05-02 20:27] VITALS: BP 125/82
== END 2018-05-02 20:29 | disposition home or self-care (01) ==
LOC: ER 20:06
DX: S61.210A Laceration without foreign body of right index finger without damage to nail, initial encounter (principal)
CPT/HCPCS: 99283

== ENCOUNTER → 2018-08-10 | Outpatient (CLI) | payer MEDICAID ==
[~2018-08-10] MED LIST changes: +FLU44R INH; -HYDR-4309 PO; +HYDR-653 PO
--- NOTE | 2018-08-10 19:55 | RADIOLOGY IMAGING REPORT ---
FACILITY: [facility] PATIENT NAME: Sharri Lema : 1990 MR: [id number] V: [id number] EXAM DATE: ORDERING PHYSICIAN: SERA MCGUIRE TECHNOLOGIST: Location: [facility] Patient: Sharri Lema : 1990 Visit/Account:[id number] Date of Sevice: 08/10/2018 EXAMINATION: CT abdomen and pelvis without IV contrast HISTORY: Trauma. Back stepped on by a horse. TECHNIQUE: Axial CT images of the abdomen and pelvis were obtained without IV contrast, with roldan l and sagittal 2D reconstructed images. One of the following dose optimization techniques was utilized in the performance of this exam: Autom ated exposure control; adjustment of the mA and/or kV according to the patient's size; or use of an i terative reconstruction technique. Specific details can be referenced in the facility's radiology C T exam operational policy. COMPARISON: 03/29/2018. FINDINGS: Evaluation of the solid and viscus parenchymal organs is limited without the benefit of IV contrast. Liver: Negative. Gallbladder and bile ducts: Negative. Spleen: Negative. Pancreas: Negative. Adrenal glands: Negative. Kidneys: Normal size and morphology of both kidneys. No retroperitoneal fluid or hemorrhage. Bowel and peritoneum: The small bowel and colon are normal in caliber and unremarkable by noncontras t imaging. No free fluid or free intraperitoneal air. Pelvic structures: Negative. Lymph node assessment: Negative. Vessels: Negative. Musculoskeletal: No acute osseous findings. Normal alignment along the lumbar spine. Vertebral body height and disc spaces are preserved. Posterior elements are intact, with normal alignment along the lumbar facet joints. The bony pelvis is intact. Body wall: Negative. Lung bases: Negative. IMPRESSION: 1. No acute traumatic findings in the abdomen or pelvis by noncontrast CT imaging. 2. Lumbar spine is unremarkable by CT. No evidence of acute fracture or subluxation. Report Dictated By: Rod Mcintosh MD at 08/10/2018 7:49 PM Report E-Signed By: Rod Mcintosh MD at 08/10/2018 7:53 PM WSN:[id number]
== END ==
LOC: CT 18:53
PROVIDERS: ATTEND Nurse Practitioner Family
DX: M25.552 Pain in left hip (principal); M54.5 Low back pain; R10.9 Unspecified abdominal pain; W55.12XA Struck by horse, initial encounter
CPT/HCPCS: 74176

== ENCOUNTER → 2018-08-30 | Outpatient (CLI) | payer MEDICAID ==
--- NOTE | 2018-08-30 10:24 | RADIOLOGY IMAGING REPORT ---
FACILITY: [facility] - [place] PATIENT NAME: Sharri Lema : 1990 MR: [id number] V: [id number] EXAM DATE: ORDERING PHYSICIAN: LETY KEE TECHNOLOGIST: Location: [facility] Patient: Sharri Lema : 1990 Visit/Account:[id number] Date of Sevice: 08/30/2018 ORBITS FOREIGN BODY 1 VIEW Given history: Pre-MRI Additional history: None Findings:Osseous structures normal. Paranasal sinuses well aerated. There are no radiopaque foreign body seen over the orbits. Impression: Normal study. Patient cleared for MRI. Report Dictated By: Connor Doan MD at 08/30/2018 10:18 AM Report E-Signed By: Connor Doan MD at 08/30/2018 10:19 AM WSN:[id number]
--- NOTE | 2018-08-30 11:51 | RADIOLOGY IMAGING REPORT ---
FACILITY: [facility] PATIENT NAME: Sharri Lema : 1990 MR: [id number] V: [id number] EXAM DATE: ORDERING PHYSICIAN: LETY KEE TECHNOLOGIST: Location: Patient: Sharri Lema : 1990 Visit/Account:[id number] Date of Sevice: 08/30/2018 L SPINE W/O CONTRAST COMPARISON: None Additional pertinent history: Lumbar disc disorder Technique: Multiplanar multisequence lumbar spine MRI was performed without gadolinium enhancement. FINDINGS: Vertebral body heights and alignment: Negative. Vertebral marrow signal: Negative. Distal thoracic cord and conus: Negative. The conus ends at T12-L1. Surrounding soft tissues: Negative. Inspection of the disc spaces reveal the following: L5-S1: Posterior broad-based disc protrusion with facet hypertrophic changes. Mild right-sided neura l foraminal narrowing. No significant left-sided neural foraminal narrowing. Mild right lateral rec ess stenosis with mild impingement upon the traversing right S1 nerve root. L4-L5: Minimal circumferential disc bulging with facet hypertrophic changes. No significant canal or neural foraminal narrowing. L3-L4: Negative. L2-L3: Negative. L1-L2: Negative. T12-L1: Negative. IMPRESSION: 1. Spondylitic change involving the lower lumbar spine. 2. Findings contribute to mild right lateral recess stenosis and mild right-sided neural foraminal n arrowing at L5-S1. 3. No underlying canal stenosis. Report Dictated By: Manuel Franks MD at 08/30/2018 11:45 AM Report E-Signed By: Manuel Franks MD at 08/30/2018 11:47 AM WSN:[id number]
== END ==
LOC: MRI 09:50
PROVIDERS: ATTEND Orthopaedic Surgery
DX: M51.06 Intervertebral disc disorders with myelopathy, lumbar region (principal)
CPT/HCPCS: 70030; 72148

== ENCOUNTER 2018-11-11 12:06 | Emergency (ER) | payer MEDICAID ==
[~2018-11-11 12:06] MED LIST changes: -MULT-1097 PO; +MULT-1540 PO
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
[2018-11-11] MEDS ORDERED: ONDANSETRON 4 MG/2 ML VIAL IVP ONE (13:00)
[2018-11-11] MEDS ORDERED: KETOROLAC 30 MG/ML VIAL IVP ONE (13:00)
[2018-11-11] MEDS ORDERED: DIAZEPAM 50 MG/10 ML MDV IVP ONE (13:00)
[2018-11-11 14:05] VITALS: BP 115/74
--- NOTE | 2018-11-11 14:18 | RADIOLOGY IMAGING REPORT ---
FACILITY: [facility] PATIENT NAME: Sharri Lema : 1990 MR: [id number] V: [id number] EXAM DATE: ORDERING PHYSICIAN: PAGE RIBEIRO TECHNOLOGIST: Location: [facility] Patient: Sharri Lema : 1990 Visit/Account:[id number] Date of Sevice: 11/11/2018 INDICATION: pain; left paraspinal area. DATE: 11/11/2018 2:13 PM. TECHNIQUE: XR THORACIC SPINE 3 V COMPARISON: Lumbar spine radiographs August 30, 2018. FINDINGS: Vertebral body heights are maintained. There is no conspicuous fracture, and there are no significant degenerative findings. Cervical disc prosthesis is noted. IMPRESSION: No acute osseous abnormality and no significant degenerative findings. Report Dictated By: Burak Grier MD at 11/11/2018 2:13 PM Report E-Signed By: Burak Grier MD at 11/11/2018 2:15 PM WSN:[email or web address]
[2018-11-11] MEDS ORDERED: LOR5/325 PO (14:26)
[2018-11-11] MEDS ORDERED: METH-543 PO (14:26)
== END 2018-11-11 14:47 | disposition home or self-care (01) ==
LOC: ER 12:49
DX: M62.830 Muscle spasm of back (principal)
CPT/HCPCS: 72072; 84703; 96374; 96375; 99284; J1885; J2405; J3360

== ENCOUNTER → 2019-01-07 | Outpatient (CLI) | payer MEDICAID ==
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
== END ==
LOC: CT 09:58
PROVIDERS: ATTEND Physician Assistant
DX: J32.0 Chronic maxillary sinusitis (principal); J34.2 Deviated nasal septum; J32.3 Chronic sphenoidal sinusitis
CPT/HCPCS: 70450

== ENCOUNTER 2019-03-25 02:58 | Emergency (ER) | payer MEDICAID ==
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
[2019-03-25] MEDS ORDERED: fentaNYL CITR 100 MCG/2 ML AMP IVP ONE (03:25)
[2019-03-25] MEDS ORDERED: NS(*) 0.9% 1000 ML BAG 1,000 ML IV ONE (03:25)
[2019-03-25 03:46] LABS: PLATELET COUNT, AUTOMATED 225 K/uL (150-450)
[2019-03-25 03:58] LABS: INR 0.98
[2019-03-25] MEDS ORDERED: KETOROLAC 30 MG/ML VIAL IVP ONE (04:50)
[2019-03-25] MEDS ORDERED: ORPHENADRINE 60MG/2ML INJ IVP ONE (04:50)
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
[2019-03-25 05:30] VITALS: BP 120/77
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
[2019-03-25] MEDS ORDERED: CYCL10TA29 PO (05:38)
[2019-03-25] MEDS ORDERED: LOR5/325 PO (05:38)
[2019-03-25] MEDS ORDERED: CYCLOBENZAPRINE HCL 10 MG TH PO ONE (05:40)
[2019-03-25] MEDS ORDERED: ACET/HYDROC 5/325MG TH ER ONLY 2 TAB/BOTTLE PO ONE (05:40)
== END 2019-03-25 05:50 | disposition home or self-care (01) ==
LOC: ER 03:22
DX: M62.830 Muscle spasm of back (principal); M25.551 Pain in right hip; M79.642 Pain in left hand; M54.5 Low back pain; R20.2 Paresthesia of skin
CPT/HCPCS: 70450; 71045; 72125; 72128; 72131; 73130; 73502; 81001; 84703; 85025; 85610; 85730; 96361; 96374; 96375; 99284; J1885; J2360; J3010; J7030; L0172; 82040; 82247; 82310; 82374; 82435; 82565; 82947; 84075; 84132; 84155; 84295; 84450; 84460; 84520

== ENCOUNTER 2019-04-17 15:52 | Emergency (ER) | payer MEDICAID ==
[~2019-04-17 15:52] MED LIST changes: +CYCL10TA29 PO
--- NOTE | 2019-04-17 15:53 | ER Report ---
History and Physical Time Seen By MD: 15:49 HPI/ROS CHIEF COMPLAINT: Left wrist pain HISTORY OF PRESENT ILLNESS: Patient is a 28-year-old female here with complaints of left wrist pain after reportedly being kicked in the hand by a horse causing extension of the wrist and subsequent wrist pain especially on the ventral aspect. Patient is neurovascularly intact at time of evaluation, capillary refill less than 2 seconds. Denies further injuries at this time. REVIEW OF SYSTEMS: Constitutional: No fever, no chills. Musculoskeletal: Tenderness on the ventral and dorsal aspect of the wrist Skin: No rashes. Neurological: Neurovascularly intact Allergies: Coded Allergies: latex (Verified Allergy, Intermediate, ITCHY, 04/17/19) nickel (Verified Allergy, Intermediate, WELTS, 04/17/19) Sulfa (Sulfonamide Antibiotics) (Verified Allergy, Mild, NAUSEA, AND TIGHT CHEST, 04/17/19) banana (Verified Allergy, Unknown, 04/17/19) chocolate flavor (Verified Allergy, Unknown, 04/17/19) coffee (Coffea arabica) (Verified Allergy, Unknown, 04/17/19) morphine (Verified Allergy, Unknown, 04/17/19) oxycodone (Verified Adverse Reaction, Mild, Vomiting , 04/17/19) Uncoded Allergies: spiders (Allergy, Severe, tachycardia/chest tightness/low blood pressure, 10/23/16) Home Meds Reported Medications Etonogestrel (NEXPLANON) 68 Mg Implant, 68 MG SQ DIRECTED, IMPLANT 04/17/19 Epinephrine (EPIPEN 2-JES) 0.3 Mg/0.3 Ml Pen.injctr, 0.3 MG IM PRN 05/02/18 Trazodone Hcl (TRAZODONE HCL) 100 Mg Tablet, 100 MG PO QHS, TAB 08/03/17 Sertraline Hcl (SERTRALINE HCL) 100 Mg Tablet, 1 TAB PO QDAY, TAB 08/03/17 Discontinued Reported Medications Fluticasone Prop 44 Mcg (FLOVENT HFA 44 MCG) 44 Mcg Inha, 44 MCG INH, INH 05/02/18 [implanon] No Conflict Check 03/29/18 Discontinued Scripts Hydrocodone Bit/Acetaminophen (HYDROCODON-ACETAMINOPHEN 5-325) 1 Each Tablet, 1 EACH PO Q4H PRN for PAIN, #6 TAB 0 Refills Prov:LINK,HÉCTOR W MD 03/25/19 Cyclobenzaprine Hcl (CYCLOBENZAPRINE HCL) 10 Mg Tablet, 10 MG PO Q8H PRN for MUSCLE SPASMS, #20 TAB 0 Refills Prov:HÉCTOR MAZA MD 03/25/19 Hx Smoking: Yes (1/4PPD ) Smoking Status: Current: Some Days Smoker Exposure to Second Hand Smoke?: Yes (1/2 pack a day) Hx Substance Use Disorder: No Hx Alcohol Use: No Constitutional Vital Sign - Last 24 Hours 04/17/19 15:55 Temp 97.3 Pulse 96 Resp 18 B/P (MAP) 133/79 Pulse Ox 93 O2 Delivery Room Air Physical Exam General Appearance: The patient is alert, has no immediate need for airway protection and no signs of toxicity. Uncomfortable appearing Neurological: No focal neurological deficits, intact sensorineural examination of the distal extremity Skin: Warm and dry, no rashes. Musculoskeletal: Tenderness on palpation of the dorsal and ventral aspect of the left wrist with range of motion of the wrist DIFFERENTIAL DIAGNOSIS: After history and physical exam differential diagnosis was considered for fracture, contusion, abrasion, sprain Medical Decision Making EKG/Imaging Imaging PATIENT NAME: Sharri Lema : 1990 MR: [id number] V: [id number] EXAM DATE: ORDERING PHYSICIAN: ANÍBAL OLGUIN TECHNOLOGIST: [place] [facility] [place] Sharri Lema : 1990 Visit/Account:[id number] Date of Sevice: 04/17/2019 XR WRIST 3 OR MORE VIEWS LT, HAND LIMITED LEFT COMPARISON: None. HISTORY: wrist pain , but the left wrist backwards TECHNIQUE: Two views left hand and three views left wrist FINDINGS: BONES: No significant arthropathy, acute-appearing fracture, malalignment, or significant osseous lesion. On the lateral view there is a 2 mm corticated bone fragment along the dorsal margin of what is probably the third CMC joint which has a chronic appearance. Carpal alignment within normal limits. SOFT TISSUES: No appreciable soft tissue swelling. No abnormal soft tissue calcifications. OTHER: Negative. IMPRESSION: Chronic appearing bone fragment along the dorsal margin of the third CMC joint. This is probably due to remote trauma. There is no acute fracture or malalignment in the left hand or wrist. Report Dictated By: Torey Michelle at 04/17/2019 5:03 PM Report E-Signed By: Torey Michelle at 04/17/2019 5:05 PM WSN:[id number] PATIENT NAME: Sharri Lema : 1990 MR: [id number] V: [id number] EXAM DATE: ORDERING PHYSICIAN: ANÍBAL OLGUIN TECHNOLOGIST: [place] [facility] [place]: Sharri Lema : 1990 Visit/Account:[id number] Date of Sevice: 04/17/2019 XR WRIST 3 OR MORE VIEWS LT, HAND LIMITED LEFT COMPARISON: None. HISTORY: wrist pain , but the left wrist backwards TECHNIQUE: Two views left hand and three views left wrist FINDINGS: BONES: No significant arthropathy, acute-appearing fracture, malalignment, or significant osseous lesion. On the lateral view there is a 2 mm corticated bone fragment along the dorsal margin of what is probably the third CMC joint which has a chronic appearance. Carpal alignment within normal limits. SOFT TISSUES: No appreciable soft tissue swelling. No abnormal soft tissue calcifications. OTHER: Negative. IMPRESSION: Chronic appearing bone fragment along the dorsal margin of the third CMC joint. This is probably due to remote trauma. There is no acute fracture or malalignment in the left hand or wrist. Report Dictated By: Torey Michelle at 04/17/2019 5:03 PM Report E-Signed By: Torey Michelle at 04/17/2019 5:05 PM WSN:[id number] ED Course/Re-evaluation ED Course Patient is a 28-year-old female here with complaints of left wrist pain after being kicked in the hand by a horse. Injury took place shortly prior to arrival. Patient is neurovascularly intact at time of evaluation in the distal extremity. X-ray imaging of the wrist and hand showed no acute fractures. Patient was given a preformed wrist splint for support. PCP follow-up recommended, return precautions provided. Decision to Disposition Date: Apr 17, 2019 Decision to Disposition Time: 17:13 Depart Departure Latest Vital Signs Vital Signs Date Time Temp Pulse Resp B/P (MAP) Pulse Ox O2 Delivery O2 Flow Rate FiO2 04/17/19 15:55 97.3 96 18 133/79 93 Room Air Impression: Primary Impression: Left wrist sprain Condition: Improved Disposition: HOME OR SELF-CARE Referrals: SERA TAYLOR MD (PCP) New Scripts Tramadol Hcl (TRAMADOL HCL) 50 Mg Tablet 50 MG PO Q6H PRN for PAIN, #6 TAB 0 Refills Prov: ANÍBAL OLGUIN DO 04/17/19 Patient Instructions: Wrist Sprain (ED) Additional Instructions: No acute fractures identified on x-ray imaging. Please wear her splint for comfort, he may take ibuprofen or Tylenol as needed for primary pain control, 1 tramadol every 6-8 hours as needed for breakthrough pain control. Please return promptly if you develop worsening pain, numbness. ANÍBAL OLGUIN DO Apr 17, 2019 15:53
[2019-04-17 15:55] VITALS: BP 133/79
[2019-04-17] MEDS ORDERED: ETON68IM SQ (16:00)
[2019-04-17] MEDS ORDERED: traMADol 50 MG TAB PO ONE (16:05)
[2019-04-17] MEDS ORDERED: KETOROLAC 60 MG/2 ML VIAL IM ONE (16:10)
--- NOTE | 2019-04-17 17:12 | RADIOLOGY IMAGING REPORT ---
[place] [facility] [place] NAME: Sharri Lema : 1990 MR: [id number] V: [id number] EXAM DATE: ORDERING PHYSICIAN: ANÍBAL OLGUIN TECHNOLOGIST: Location: [facility] - [place] Patient: Sharri Lema : 1990 Visit/Account:[id number] Date of Sevice: 04/17/2019 XR WRIST 3 OR MORE VIEWS LT, HAND LIMITED LEFT COMPARISON: None. HISTORY: wrist pain , but the left wrist backwards TECHNIQUE: Two views left hand and three views left wrist FINDINGS: BONES: No significant arthropathy, acute-appearing fracture, malalignment, or significant osseous le mariano. On the lateral view there is a 2 mm corticated bone fragment along the dorsal margin of what i s probably the third CMC joint which has a chronic appearance. Carpal alignment within normal limits . SOFT TISSUES: No appreciable soft tissue swelling. No abnormal soft tissue calcifications. OTHER: Negative. IMPRESSION: Chronic appearing bone fragment along the dorsal margin of the third CMC joint. This is probably due to remote trauma. There is no acute fracture or malalignment in the left hand or wrist. Report Dictated By: Torey Michelle at 04/17/2019 5:03 PM Report E-Signed By: Torey Michelle at 04/17/2019 5:05 PM WSN:[id number]
--- NOTE | 2019-04-17 17:12 | RADIOLOGY IMAGING REPORT ---
[place] [facility] [place] NAME: Sharri Lema : 1990 MR: [id number] V: [id number] EXAM DATE: ORDERING PHYSICIAN: ANÍBAL OLGUIN TECHNOLOGIST: Location: [facility] Patient: Sharri Lema : 1990 Visit/Account:[id number] Date of Sevice: 04/17/2019 XR WRIST 3 OR MORE VIEWS LT, HAND LIMITED LEFT COMPARISON: None. HISTORY: wrist pain , but the left wrist backwards TECHNIQUE: Two views left hand and three views left wrist FINDINGS: BONES: No significant arthropathy, acute-appearing fracture, malalignment, or significant osseous le mariano. On the lateral view there is a 2 mm corticated bone fragment along the dorsal margin of what i s probably the third CMC joint which has a chronic appearance. Carpal alignment within normal limits . SOFT TISSUES: No appreciable soft tissue swelling. No abnormal soft tissue calcifications. OTHER: Negative. IMPRESSION: Chronic appearing bone fragment along the dorsal margin of the third CMC joint. This is probably due to remote trauma. There is no acute fracture or malalignment in the left hand or wrist. Report Dictated By: Torey Michelle at 04/17/2019 5:03 PM Report E-Signed By: Torey Michelle at 04/17/2019 5:05 PM WSN:[id number]
[2019-04-17] MEDS ORDERED: TRAM-420 PO (17:19)
== END 2019-04-17 17:45 | disposition home or self-care (01) ==
LOC: ER 15:55
DX: S63.502A Unspecified sprain of left wrist, initial encounter (principal)
CPT/HCPCS: 73110; 73120; 96372; 99284; J1885; L3908